=== PATIENT | male | born 1995 | race Caucasian/White ===

== ENCOUNTER 2022-12-30 22:27 | Emergency (ER) | payer SELFPAY ==
[2022-12-30 23:12] LABS: BASOPHILS ABSOLUTE AUTO 0.1 K/uL (0.0-0.1); BASOPHILS PERCENT AUTO 0.6 % (0.0-1.5); EOSINOPHILS ABSOLUTE AUTO 0.3 K/uL (0.0-0.7); EOSINOPHILS PERCENT AUTO 3.5 % (0.0-7.0); HEMATOCRIT 43.3 % (38.0-50.0); HEMOGLOBIN 15.6 g/dL (13.0-17.0); LYMPHOCYTES PERCENT AUTO 38.2 % (16.0-40.0); MEAN CORPUSCULAR HEMOGLOBIN 30.2 pg (27.0-32.0); MEAN CORPUSCULAR VOLUME 83.8 fL (80.0-98.0); MONOCYTES ABSOLUTE AUTO 0.6 K/uL (0.0-0.8); MONOCYTES PERCENT AUTO 7.3 % (0.0-15.0); NEUTROPHILS PERCENT AUTO 50.4 % (48.0-80.0); NRBC ABSOLUTE 0 K/uL; PLATELET COUNT,PLT 268 K/uL (150-400); RED BLOOD CELL COUNT 5.17 M/uL (4.50-5.90); WHITE BLOOD CELL COUNT,WBC 7.91 K/uL (4.0-11.0)
[2022-12-31 00:06] LABS: A/G RATIO 1.2 (0.9-1.6); ALBUMIN 4.3 g/dL (3.4-5.0); ALKALINE PHOSPHATASE 91 U/L (46-116); BILIRUBIN TOTAL 0.3 mg/dL (0.2-1.0); BLOOD UREA NITROGEN,BUN 14 mg/dL (7.0-18.0); CALCIUM 8.9 mg/dL (8.5-10.1); CARBON DIOXIDE,CO2 28.5 mmol/L (21.0-32.0); CHLORIDE,CL 103 mmol/L (98-107); CREATININE 1.3 mg/dL (0.8-1.3); EST CRCL DRUG DOSING (CG) 97.31 mL/min; GLUCOSE RANDOM 132 mg/dL (74-106); POTASSIUM,K 3.7 mmol/L (3.5-5.1); SODIUM,NA 142 mmol/L (136-148)
[2022-12-31 00:09] LABS: ESTIMATED GFR 78 mL/min (>60)
[2022-12-31 00:43] LABS: ALANINE AMINOTRANSFERASE,ALT 47 IU/L (14-63); ASPARTATE AMNIOTRANSFERASE,AST 27 IU/L (15-37)
== END 2022-12-31 01:43 | disposition home or self-care (01) ==
LOC: MW.ED 22:27
DX: R07.9 Chest pain, unspecified (principal); R03.0 Elevated blood-pressure reading, without diagnosis of hypertension; Z88.8 Allergy status to other drugs, medicaments and biological substances
CPT/HCPCS: 36415; 71046; 71046-26; 80053; 84484; 85025; 85379; 93010; 99284; 99285

== ENCOUNTER 2024-01-30 17:16 | Emergency (ER) | payer BC ==
[2024-01-30] MEDS: Acetaminophen 500 MG Tab PO STA (18:40)
[2024-01-30] MEDS: Ibuprofen 800 MG Tab PO STA (18:40)
[2024-01-30] MEDS: oxyCODONE 5 MG Tab PO STA (18:40)
== END 2024-01-30 19:26 | disposition home or self-care (01) ==
LOC: MW.ED 17:16
DX: S42.025A Nondisplaced fracture of shaft of left clavicle, initial encounter for closed fracture (principal); Z75.8 Other problems related to medical facilities and other health care; Z91.041 Radiographic dye allergy status; F17.210 Nicotine dependence, cigarettes, uncomplicated; V86.56XA Driver of dirt bike or motor/cross bike injured in nontraffic accident, initial encounter
CPT/HCPCS: 73000; 73020; 99283; A9270

== ENCOUNTER 2024-02-03 09:51 | Day surgery (SDC) | payer OTHER, BC ==
[~2024-02-03 09:51] MED LIST: ceFAZolin 2 GM in Sodium Chloride 0.9% 50 ML IV ONE
[2024-02-03] MEDS: Lactated Ringers 1,000 ML IV SCH (10:20)
[2024-02-03] MEDS ORDERED: Lidocaine 2% 5 ML SDV ONE (10:27)
[2024-02-03] MEDS ORDERED: Ropivacaine 0.5% 5 MG/ML 30 ML SDV ONE (10:27)
[2024-02-03] MEDS ORDERED: propofoL 50 ML ONE ×2 (10:56→12:05)
[2024-02-03] MEDS ORDERED: Propofol 200 MG/20 ML SDV ONE ×2 (10:56→12:44)
[2024-02-03] MEDS ORDERED: fentaNYL 250 MCG/5 ML SDV ONE (10:56)
[2024-02-03] MEDS ORDERED: Ketamine HCL/NACL, ISO-OSM 50 MG/5 ML Syringe ONE (10:56)
[2024-02-03] MEDS ORDERED: dexmedeTOMIDine HCl 200 MCG/2 ML SDV ONE (12:08)
[2024-02-03] MEDS ORDERED: Ketorolac 30 MG/ML SDV ONE (12:45)
[2024-02-03] MEDS ORDERED: Dexamethasone 4 MG/ML 5 ML MDV ONE (12:45)
[2024-02-03] MEDS ORDERED: Ondansetron 4 MG/2 ML SDV ONE (12:45)
[2024-02-03] MEDS ORDERED: HYDROmorphone 2 MG/ML Syringe ONE (12:59)
== END 2024-02-03 14:59 | disposition home or self-care (01) ==
LOC: MW.SDS 09:51
PROVIDERS: ATTEND Orthopaedic Surgery
DX: S42.022A Displaced fracture of shaft of left clavicle, initial encounter for closed fracture (principal); I10 Essential (primary) hypertension; F17.210 Nicotine dependence, cigarettes, uncomplicated; Z79.899 Other long term (current) drug therapy; Z91.041 Radiographic dye allergy status; V89.2XXA Person injured in unspecified motor-vehicle accident, traffic, initial encounter
CPT/HCPCS: 23515; J0131; J1100; J1170; J1885; J2405; J2704; J2795; J3010; J7120; 00450; 64415; C1713; J3490